=== PATIENT | male | born 1965 | race Caucasian/White ===

== ENCOUNTER 2020-09-18 06:29 | Day surgery (SDC) | payer MEDICAID, SELFPAY ==
[~2020-09-18] VITALS: Ht 167.6 cm; Wt 63.5 kg
[2020-09-18] MEDS ORDERED: fentaNYL CITRATE/PF 100 MCG/2 ML AMP ONE (07:37)
[2020-09-18] MEDS ORDERED: DIPHENHYDRAMINE INJ 50 MG/ML VIAL ONE (07:37)
[2020-09-18] MEDS ORDERED: SIMETHICONE 40 MG/0.6 ML ML ONE (07:37)
[2020-09-18] MEDS ORDERED: MEPERIDINE 100 MG INJ. 100 MG/ML VIAL ONE (07:37)
[2020-09-18] MEDS ORDERED: MIDAZOLAM HCL 5 MG/5 ML VIAL ONE (07:38)
[2020-09-18 10:19] VITALS: BP_SYST 110
== END 2020-09-18 09:55 | disposition home or self-care (01) ==
LOC: SDS 06:29 → EDSEX 08:00 → SDS 09:55
PROVIDERS: ATTEND Internal Medicine Gastroenterology
DX: R10.13 Epigastric pain (principal); K29.70 Gastritis, unspecified, without bleeding; K21.00 Gastro-esophageal reflux disease with esophagitis, without bleeding; K52.9 Noninfective gastroenteritis and colitis, unspecified; Z20.828 Contact with and (suspected) exposure to other viral communicable diseases
CPT/HCPCS: 36415; 43239; 87081; 88305; 88312; 88313; 99152; G0378; J2175; J2250; J7030; U0003; J1200; J3010